=== PATIENT | female | born 1945 | race Caucasian/White ===

== ENCOUNTER 2025-01-08 10:36 | Day surgery (SDC) | payer MEDICARE ==
[2025-01-08] MEDS ORDERED: Propofol 200 MG/20 ML SDV ONE (14:00)
== END 2025-01-08 15:29 | disposition home or self-care (01) ==
LOC: LB.SDS 10:36
PROVIDERS: ATTEND Surgery
DX: Z12.11 Encounter for screening for malignant neoplasm of colon (principal); D12.2 Benign neoplasm of ascending colon; K57.30 Diverticulosis of large intestine without perforation or abscess without bleeding; I10 Essential (primary) hypertension; E03.9 Hypothyroidism, unspecified; E66.9 Obesity, unspecified; Z88.8 Allergy status to other drugs, medicaments and biological substances; Z68.32 Body mass index [BMI] 32.0-32.9, adult; Z79.82 Long term (current) use of aspirin; Z79.899 Other long term (current) drug therapy
CPT/HCPCS: J2704; J7030